=== PATIENT | female | born 1960 | race Two or more races ===

== ENCOUNTER 2019-05-25 11:52 | Emergency (ER) | payer OTHER ==
[~2019-05-25] VITALS: Ht 157.5 cm; Wt 49.9 kg
[2019-05-25] MEDS ORDERED: KETO10TA2 PO (12:58)
== END 2019-05-25 14:43 | disposition home or self-care (01) ==
LOC: ER 11:52
DX: S13.4XXA Sprain of ligaments of cervical spine, initial encounter (principal); V49.88XA Car occupant (driver) (passenger) injured in other specified transport accidents, initial encounter; Y93.89 Activity, other specified; Y92.488 Other paved roadways as the place of occurrence of the external cause; Y99.8 Other external cause status